=== PATIENT | male | born 1980 | race Two or more races ===

== ENCOUNTER → 2024-05-09 18:28 | Emergency (ER) | payer MEDICAID ==
[~2024-05-09] VITALS: Ht 180.3 cm; Wt 135.0 kg
[2024-05-09 18:28] VITALS: PULSE 0; RESP 0; O2SAT 0
--- NOTE | 2024-05-09 18:50 | ED.PDOC ---
History of Present Illness HPI Comments 43 y/o M is BIBA for cardiac arrest, today. EMS reports the patient was acting erratically in the park and when law enforcement was called they handcuffed him and placed him on his stomach. After a couple of minutes they noticed that patient stopped responding. Law enforcement uncuffed him and began CPR. EMS arrived approximately 2 minutes later. EMS continued CPR for approximately 20 minutes placed an IO in the patient's right tibia. They were bagging him. He received 4 rounds of epi and 4 mg of Narcan. Patient's cardiac rhythm remained asystole the entire time. Upon arrival to ED at 1828, EMS estimated a total down time of 22x minutes, last epinephrine administered at 1827, and patient having a blood glucose of 224, with no known additional pertinent or relevant past Hx. Care was resumed by ED staff. Time Seen by MD: 18:28 Primary Care Provider: NONE Reviewed Notes: Nurses Notes, Rubbish Collector Notes, Medications, Allergies Allergies: Coded Allergies: NO KNOWN ALLERGIES (Unverified , 06/05/14) Information Source: Patient, Emergency Med Personnel Mode of Arrival: EMS Severity: Moderate Timing: Minutes Duration: Since onset Prehospital treatment: 12 Lead EKG, Accucheck, Major Account Representative, CPR, NTG, Other (epinehphine, 4x rounds; i/o right tibia) Past Medical History PAST MEDICAL HISTORY: Denies Surgical History: Denies all surgeries Family History Family History: Unknown Social History Smoker: Cigarettes, Less Than 1 Pack/Day Alcohol: Denies ETOH Use Drugs: Denies Drug Use Lives In: Home Cardiovascular: reports: others (cardiac arrest ) All Other Systems: Reviewed and Negative (negative otherwise stated in HPI) Physical Exam General Appearance: Other (CPR in progress) HEENT: Other (Pupils fixed and dilated) Neck: NOT DONE Respiratory: Other Cardiovascular: Other (CPR in progress) Breast Exam: Deferred Gastrointestinal: NOT DONE Genitalia: Deferred Pelvic: Deferred Rectal: None Extremities: None Neurologic: Other (Unresponsive) Cerebellar Function: NOT DONE Reflexes: NOT DONE Skin: Other (IO to right tib/fib) Lymphatic: NOT DONE Was a procedure done? Was a procedure done?: Yes Sedation Sedation?: No Intubation Indication: Respiratory Insufficiency, Altered Mental Status Prep: Preoxygenation Pretreated with: Nothing Medicated with: Nothing Intubation Approach: Orotracheal (8.0) Intubation size: cm (24 at the lips) Informed consent obtained: No Risks/benefits/alt described: No Differential Dx Considerations may include: cardiac arrest X-Ray, Labs, Meds, VS Vital Signs Date Time Temp Pulse Resp B/P (MAP) Pulse Ox O2 Delivery O2 Flow Rate FiO2 05/09/24 19:43 0 05/09/24 18:51 101.5 0 10 0/0 (0) 80 05/09/24 18:28 0 0 0 T-piece 0 N/A TOD 183 Time of 1ST Reevaluation: 18:38 Reevaluation 1ST: patient Patient Education/Counseling: Pt Unresponsive Family Education/Counseling: No Family Present Departure 1 Departure Time of Disposition: 23:37 (Patient presented with CPR in progress. ACLS per protocol. Time of was declared at 6:28 p.m..) Impression: Primary Impression: Cardiac arrest Disposition: 20 Admit to: Jes[facility]s Condition: Other () Critical Care Note Critical Care Time?: No Stability Stability form required: No Heart Score Heart Score: Heart Score Response (Comments) Value History N/A 0 EKG N/A 0 Age N/A 0 Risk Factors N/A 0 Troponin N/A 0 Total 0 I personally scribed for ERICA CEDEÑO MD ([email or web address]) on 05/09/24 at 18:50. Electronically submitted by Dante Arango ([email or web address]). I personally scribed for ERICA CEDEÑO MD ([email or web address]) on 05/09/24 at 19:04. Electronically submitted by Dante Arango ([email or web address]). ERICA CEDEÑO MD May 09, 2024 18:50
[2024-05-09 18:51] VITALS: BP 0/0; PULSE 0; RESP 10; O2SAT 80
--- NOTE | 2024-05-09 18:55 | DVHNC2 ---
Intubation Indication: Respiratory Insufficiency Prep: Preoxygenation Pretreated with: Nothing Medicated with: Nothing Intubation Approach: Orotracheal Intubation size: cm (8) Informed consent obtained: No Risks/benefits/alt described: No UTO Consent Patient came in cardiopulmonary arrest. Notes Patient was intubated using a 8cm endotracheal tube under vision with a glidescope. Tube fixed at 23 cm at the lip. B/L breath sounds heard. Condensation seen in the tube. Positive color change seen on calorimetric capnography Procedure supervised by Date of Service: May 09, 2024 Billing Provider: ERICA CEDEÑO MD Common Visit Codes: PROCEDURE ONLY MAURICE ABEL RESIDENT May 09, 2024 18:55
--- NOTE | 2024-05-09 19:43 | RESUS ---
CODE BLUE ASSESSSMENT History of Events History of Events: SEE ER REPORT, ARRIVED SECURED CODE BLUE AT 1827 WITH I/O, AUTOMATIC COMPRESSSION DEVICE, BLS AIRWAY BEING BAGGED WITH TOTAL DOWNTIME 22 MINS AND 4 ROUNDS OF EPINEPHRINE GIVEN WITH 4 MG NARCAN AND ASYSTOLE EACH PULSE CHECK PER EMS REPORT. Initial Information Date: May 09, 2024 Time: 18:27 [place] of Arrest: [place] Arrest Witnessed: Yes (WITH ADAPTED PHYSICAL EDUCATION AIDE) CPR started by whom: EUGENE Pre-Hospital Care: ACLS Type of arrest: Cardiac, Adult, Witnessed Spontaneous Respirations: No Pulse Present: No Monitoring: ECG, Pulse Oximetry Crash Cart Opened and Supplies: Yes Airway Ventilation Breathing at Onset: Assisted Time of first Assisted Ventila: 18:27 Artificial Ventilation: Bag/Mask Intubation Time: 18:34 Intubation Size: 8.0 cuffed Intubated by: RESIDENT DR ABEL Intubated orally: Yes Tube secured at: 23 CO2 indicator used: Yes Confirmation: Auscultation, Exhaled CO2 Suctioning (Oral/Tracheal): Yes Circulation Circulation #1: Time: 18:29 Pulse Rate (adult): 0 Blood Pressure Systolic: 0 Blood Pressure Diastolic: 0 Circulation Comment: ASYSTOLE Circulation #2: Time: 18:31 Pulse Rate (adult): 0 Blood Pressure Systolic: 0 Blood Pressure Diastolic: 0 Circulation Comment: [place]YSTOLE Circulation #3: Time: 18:33 Pulse Rate (adult): 0 Blood Pressure Systolic: 0 Blood Pressure Diastolic: 0 Temperature (Fahrenheit): 101.2 Circulation Comment: [place]YSTOLE Circulation #4: Time: 18:35 Pulse Rate (adult): 0 Blood Pressure Systolic: 0 Blood Pressure Diastolic: 0 Circulation Comment: ASYSTOLE Circulation #5: Time: 18:37 Pulse Rate (adult): 0 Blood Pressure Systolic: 0 Blood Pressure Diastolic: 0 Circulation Comment: ASYSTOLE, TIME OF CALLED AT 1838 Defibrillation Defbrillation : Time Defibrillator Applied: 18:27 Compressions: Device Time Defibrillator Shocked Pt.: 18:34 Defib. Joules: 120 Pulse Present: No EKG Rhythm: V-Tachycardia Procedure - IV Procedure - IV #1: IV Side: Left IV Location: Hand IV Catheter Type: Peripheral IV IV Placed: RN IV Gauge: 20 IV Line Care: Saline Flush Procedure - IV #2: IV start time: 18:36 IV Side: Right IV Catheter Type: Peripheral IV IV Placed: MD IV Gauge: 20 IV Line Care: Saline Flush Procedure - Intraosseous Site of Intraosseous: Tibia sharlene-medial (RIGHT) Intraosseous inserted by: PLACED BY EMS PRIOR TO ARRIVAL Medications & Response Medications and Responses #1: Medication Time: 18:29 ADULT Medications Given ADULT: Epinephrine 1 mg, Sodium Bacarbinate 50 meq Route of Administration: IO Medications and Responses #2: Medication Time: 18:32 ADULT Medications Given ADULT: Epinephrine 1 mg, Calcium Chloride 10 mL Route of Administration: IO Medications and Responses #3: Medication Time: 18:33 ADULT Medications Given ADULT: D50 (amp) (D50 IN IO), Magnesium Sulfate 2 gm Route of Administration: IV (MAG IN LEFT IV) Medications and Responses #4: Medication Time: 18:35 ADULT Medications Given ADULT: Epinephrine 1 mg Route of Administration: IV Nurses Notes [place] Coma Scale Eye Opening: None (1) Cricket Coma Scale Verbal: None (1) [place] Coma Scale Motor: None (1) Pupil Reaction: Non Reactive Bedside Blood Glucose: 336 (AT 1833) EKG Rhythm: Asystole Time Code Ended Time Code Ended: 18:38 Post Arrest Status: Outcome of code: Unsuccessful Patient pronounced by: DR CEDEÑO Time patient pronounced: 18:38 Family notified: No Code Team Present: DARRIUS BOLDEN RN, VALENTIN RN, CHARLES RN, RICHY RN, BARRIE RT, VIVIEN RT, DR VREAS RESIDENT, DR MICHAELAJJ RESIDENT Valentin Dewey May 09, 2024 19:43
== END ==
LOC: EDUNIT# 18:20 → EDBD 18:28 → ER 18:28
DX: I46.9 Cardiac arrest, cause unspecified (principal); F17.210 Nicotine dependence, cigarettes, uncomplicated
CPT/HCPCS: 31500; 92950